=== PATIENT | female | born 1965 | race Two or more races ===

== ENCOUNTER 2018-03-26 22:18 | Emergency (ER) | payer BC, OTHER ==
[2018-03-26] MEDS: FAMOTIDINE 20 MG TAB PO (22:37)
[2018-03-26] MEDS: DIPHENHYDRAMINE 50 MG INJ IM (22:37)
[2018-03-26] MEDS: EPINEPHrine 1 MG INJ SC (22:37)
[2018-03-26] MEDS: predniSONE 20 MG TAB PO (22:38)
[2018-03-26] MEDS: FAMOTIDINE 20 MG INJ IV (23:26)
[2018-03-26] MEDS: METHYLPREDNISOLONE 125 MG INJ IV (23:27)
[2018-03-27] MEDS: DIPHENHYDRAMINE 50 MG INJ IV (00:08)
[2018-03-27] MEDS: SOD CHLORIDE 0.9% 1,000 ML IV ×2 (00:41→00:42)
== END 2018-03-27 01:30 | disposition home or self-care (01) ==
LOC: E/R 22:18
DX: T78.2XXA Anaphylactic shock, unspecified, initial encounter (principal); I10 Essential (primary) hypertension; Z79.82 Long term (current) use of aspirin
CPT/HCPCS: 96372; 96374; 96375; 99291-25